=== PATIENT | female | born 1980 | race Caucasian/White ===

== ENCOUNTER 2017-02-10 12:13 | Emergency (ER) | payer MEDICAID ==
[~2017-02-10 12:13] MED LIST: KEFLEX500 MG PO; LAC PO; NORCO1 TA2 PO
[2017-02-10 12:58] VITALS: BP 152/78
== END 2017-02-10 14:29 | disposition home or self-care (01) ==
LOC: ED 12:13
DX: M54.6 Pain in thoracic spine (principal); R10.9 Unspecified abdominal pain; Z86.2 Personal history of diseases of the blood and blood-forming organs and certain disorders involving the immune mechanism

== ENCOUNTER 2019-03-15 01:54 | Emergency (ER) | payer MEDICAID ==
[~2019-03-15] VITALS: Ht 157.5 cm; Wt 96.4 kg
[2019-03-15 02:07] VITALS: Ht 157.5 cm; Wt 96.4 kg
[2019-03-15 05:35] VITALS: BP 144/99
== END 2019-03-15 05:35 | disposition home or self-care (01) ==
LOC: ED 01:54
DX: R51 Headache (principal); R20.2 Paresthesia of skin

== ENCOUNTER 2019-08-09 12:15 | Emergency (ER) | payer MEDICAID ==
[~2019-08-09] VITALS: Ht 162.6 cm; Wt 98.4 kg
[2019-08-09 12:40] VITALS: Ht 162.6 cm; Wt 98.4 kg
[2019-08-09 13:16] LABS: microscopic required? NO
[2019-08-09 13:22] LABS: UA SPECIFIC GRAVITY <=1.005 (1.005-1.035); urine erythrocyte NEGATIVE (NEGATIVE)
[2019-08-09 13:32] LABS: AMPHETAMINE QUAL UR NONE DETECTED (See below)
[2019-08-09 13:37] LABS: BASOPHIL % 0.6 % (0-2); PLATELET COUNT 285 x10^3mcL (130-400)
[2019-08-09 13:41] LABS: RED CELL DISTRIBUTION WIDTH 14.7 % (11.5-14.5)
[2019-08-09 13:46] LABS: ALBUMIN 3.7 g/dL (3.4-5.0); ALKALINE PHOSPHATASE 64 U/L (46-116); ALT/SGPT 39 U/L (14-59); AST/SGOT 20 U/L (15-37); BILIRUBIN TOTAL 0.33 mg/dL (0.20-1.00); CARBON DIOXIDE 21.9 mmol/L (21-32); CHLORIDE SERUM 102 mmol/L (98-107); CHOLESTEROL 172 mg/dL (<200); CREATININE SERUM 0.8 mg/dL (0.6-1.0); GFR1 > 60 mL/min; GLUCOSE SERUM 161 mg/dL (74-106); HDL CHOLESTEROL 56 mg/dL (40-60); LIPASE 85 IU/L (73-393); POTASSIUM SERUM 3.3 mmol/L (3.5-5.1); SODIUM SERUM 136 mmol/L (136-145); T4(THYROXINE) 8.1 ug/dL (4.7-13.3); TOTAL PROTEIN, SERUM 8.2 g/dL (6.4-8.2)
[2019-08-09 14:06] LABS: CALCIUM 8.8 mg/dL (8.5-10.1)
[2019-08-09 15:43] VITALS: BP 144/94
== END 2019-08-09 15:43 | disposition home or self-care (01) ==
LOC: ED 12:15
PROVIDERS: Emergency Medicine
DX: R10.13 Epigastric pain (principal); R14.0 Abdominal distension (gaseous); K21.9 Gastro-esophageal reflux disease without esophagitis; Z98.51 Tubal ligation status; Z90.49 Acquired absence of other specified parts of digestive tract; Z86.2 Personal history of diseases of the blood and blood-forming organs and certain disorders involving the immune mechanism
CPT/HCPCS: 36415; 83880